=== PATIENT | female | born 1995 | race Caucasian/White ===

== ENCOUNTER 2020-04-06 08:10 | Inpatient (IN) ==
[2020-04-06 08:57] LABS: Basophils % 0.4 %; Eosinophils # 0.1 K/mcL (0.0-0.6); Hematocrit 40.4 % (35.3-44.9); Hemoglobin 13.6 g/dL (11.5-15.4); Immature Granulocytes % 0.4 % (0-4); Immature Platelets 9.5 % (1.1-6.1); Lymphocytes # 1.7 K/mcL (0.6-4.6); Lymphocytes % 17.6 %; Mean Corpuscular HGB Conc 33.7 g/dL (31.6-35.5); Mean Corpuscular Hemoglobin 27.4 pg (28.0-33.3); Mean Corpuscular Volume 81.5 fL (83.0-100.0); Mean Platelet Volume 11.6 fL (9.4-12.4); Monocytes # 0.7 K/mcL (0.0-1.3); Neutrophils # 7.3 K/mcL (1.6-8.9); Platelet Count 119 K/mcL (140-400); Red Blood Count 4.96 M/mcL (3.82-4.97); Red Cell Distribution Width 13.9 % (11.5-14.5); Segmented Neutrophils % 73.6 %; White Blood Count 9.9 K/mcL (4.3-11.1)
[2020-04-06 09:15] LABS: Alanine Aminotransferase 20 Units/L (7-52); Aspartate Amino Transferase 23 Units/L (13-39); BUN/Creatinine Ratio 19 (6-26); Blood Urea Nitrogen 13 mg/dL (6-20); Lactate Dehydrogenase 239 Units/L (140-271); Uric Acid 4.9 mg/dL (2.3-7.6); eGFR For African Americans > 60 (> 60); eGFR For Non-African Americans > 60 (> 60)
[2020-04-06 09:26] LABS: Prothrombin Time 12.1 Seconds (9.4-12.1)
[2020-04-06 09:29] LABS: Activated Partial Thrombo Time 44.3 Seconds (26.0-36.0)
[2020-04-06 09:36] LABS: Bacteria,Urine Few per hpf (None-Few); Bilirubin,Urine Negative (Negative); Blood,Urine Small (Negative); Calcium Oxalate Crystals,Urine Present; Clarity,Urine Turbid (Clear); Color,Urine Yellow (Yellow); Glucose,Urine (UA) Normal (Normal); Ketones,Urine Negative (Negative); Leukocyte Esterase,Urine Negative (Negative); Mucus,Urine Few per lpf (None-Few); Nitrite,Urine Negative (Negative); PH,Urine 6.5 pH Units (5.0-8.0); Protein,Urine 100 mg/dL (Neg-Trace); RBC,Urine 0-3 per hpf (0-3); Specific Gravity,Urine > 1.030 (1.010-1.025); Squamous Epithelial Cell,Urine Few per hpf (None-Few); WBC,Urine 0-3 per hpf (0-3)
[2020-04-06 09:53] LABS: Protein/Creatinine Ratio,Urine 0.15 mg/mg (0.00-0.20)
[2020-04-06] MEDS ORDERED: Naloxone 0.4 MG/ML INJ IVP PRN (10:46)
[2020-04-06] MEDS ORDERED: Metoclopramide 10 MG/2 ML VIAL IVP PRN (10:46)
[2020-04-06] MEDS ORDERED: miSOPROStoL 25 MCG TABLET VG PRN (10:46)
[2020-04-06] MEDS ORDERED: Azithromycin 500 MG in 0.9 % Sodium Chloride 250 ML IVPB ONE (10:46)
[2020-04-06] MEDS ORDERED: Ondansetron 4 MG/2 ML VIAL IVP PRN (10:46)
[2020-04-06] MEDS ORDERED: Famotidine 20 MG/2 ML VIAL IVP PRN (10:46)
[2020-04-06] MEDS ORDERED: Ringers Solution, Lactated 1,000 ML IVC SCH ×2 (11:00)
[2020-04-06] MEDS ORDERED: EPHEDrine 50 MG/ML VIAL IVP PRN (11:46)
[2020-04-06] MEDS ORDERED: Epidural Premix (fent/bupiv) 110 ML EP SCH (12:00)
[2020-04-06] MEDS ORDERED: miSOPROStoL 100 MCG TABLET VG ONE (12:16)
[2020-04-06] MEDS ORDERED: Oxytocin 20 units/ LR 1000 mL 20 UNIT/1,000 ML BAG IVC ONE ×2 (12:54→17:17)
[2020-04-06] MEDS ORDERED: *HR* Labetalol 20 MG/4 ML SYRINGE IVP PRN (14:05)
[2020-04-06] MEDS: *HR* Nalbuphine 10 MG/ML AMPUL IV PRN ×2 (14:11→17:22)
[2020-04-06] MEDS ORDERED: *HR* FentaNYL (PF) 100 MCG/2 ML VIAL IVP PRN (16:11)
[2020-04-06] MEDS ORDERED: *HR* Midazolam HCl 2 MG/2 ML VIAL ONE ×2 (17:40→18:18)
[2020-04-06] MEDS ORDERED: *HR* Propofol 200 MG/20 ML VIAL IVP ONE (17:41)
[2020-04-06] MEDS ORDERED: Ketamine *HR* 500 MG/10 ML MDV ONE (17:41)
[2020-04-06] MEDS ORDERED: *HR* FentaNYL (PF) 100 MCG/2 ML VIAL ONE ×2 (17:41→18:14)
[2020-04-06] MEDS ORDERED: Ondansetron 4 MG/2 ML VIAL ONE ×2 (17:42→18:39)
[2020-04-06] MEDS ORDERED: Acetaminophen IV 1,000 MG/100 ML BAG IVPB ONE (18:01)
[2020-04-06] MEDS ORDERED: *HR* Vasopressin 20 UNIT/ML VIAL IVP STA (18:29)
[2020-04-06] MEDS ORDERED: Acetaminophen 325 MG TABLET PO PRN (19:41)
[2020-04-06] MEDS ORDERED: Ibuprofen 600 MG TABLET PO PRN (19:41)
[2020-04-06] MEDS ORDERED: Oxytocin 20 units/ LR 1000 mL 20 UNIT/1,000 ML BAG IVC SCH (19:41)
[2020-04-06] MEDS ORDERED: Piperacillin/Tazobactam 3.375 GM in 0.9 % Sodium Chloride Mini Bag 100 ML IVPB SCH (19:41)
[2020-04-06] MEDS: Piperacillin/Tazobactam 3.375 GM in 0.9 % Sodium Chloride Mini Bag 100 ML IVPB SCH (21:39)
[2020-04-07 03:45] VITALS: BP 122/82
[2020-04-07] MEDS: Piperacillin/Tazobactam 3.375 GM in 0.9 % Sodium Chloride Mini Bag 100 ML IVPB SCH (04:54)
[2020-04-07] MEDS ORDERED: Prenatal Vit/FA 1 EACH TABLET PO SCH (09:00)
== END 2020-04-07 12:17 | disposition home or self-care (01) | DRG 564 ==
LOC: EMEROOARM 08:10 → 1NENULAB 08:10 → 1NENUPED 21:14
PROVIDERS: ADMIT Registered Nurse; ATTEND Registered Nurse